=== PATIENT | male | born 1960 | race Caucasian/White ===

== ENCOUNTER 2017-06-10 11:54 | Inpatient (IN) ==
[2017-06-10] MEDS ORDERED: THIAMINE INJ 100 MG, FOLIC ACID INJ 1 MG, MAGNESIUM SULF INJ 2 GM, MULTIVITAMIN INJ 10 ... IV ONE (12:07)
[2017-06-10] MEDS ORDERED: ONDANSETRON 4 MG/2 ML VIAL IV STA (12:31)
[2017-06-10] MEDS ORDERED: ONDANSETRON 4 MG/2 ML VIAL ONE ×2 (12:39→13:00)
[2017-06-10 12:56] LABS: Basophils % 0.2 % (0.0-0.8); Eosinophils % 0.1 % (0.00-10.9); Hematocrit 49.2 VOL% (42.0-52.0); Hemoglobin 16.5 GM/DL (14.0-18.0); Immature Granulocytes % 0.5 %; Immature Granulocytes Absolute 0.08 #; Lymphocytes # 1.2 10*3/uL (1.4-4.0); Lymphocytes % 7.4 % (21.2-54.2); Mean Corpuscular HGB Conc 33.5 GM/DL (32-36); Mean Corpuscular Hemoglobin 30 PG (27-34); Mean Corpuscular Volume 89.9 FL (87-102); Mean Platelet Volume 10.5 FL (9.6-12.0); Monocytes # 0.6 10*3/uL (0.11-0.8); Monocytes % 3.8 % (1.7-12.7); Neutrophils # 14.4 10*3/uL (1.4-7.4); Platelet Count 327 T/CUMM (130-400); Red Blood Count 5.47 MC/CUMM (3.8-5.5); Red Cell Distribution Width 13.4 % (9.3-17.3); White Blood Count 16.4 T/CUMM (4-12)
[2017-06-10 12:59] LABS: Apearance,Urine Slightly Hazy (Clear); Bilirubin,Urine Negative (Negative); Blood, Urine Negative (Negative); Glucose,Urine (UA) Negative (Negative); Ketones,Urine Negative (Negative); Mucus,Urine Many /LPF (Occasional); Nitrite,Urine Negative (Negative); Protein,Urine 30 MG/DL; RBC,Urine 2 /HPF (0-4); Urine Color Amber (Yellow); Urine Specific Gravity 1.029 (1.001-1.035); Urine Urobilinogen < 2.0 EU/DL (0.2-1.0); WBC,Urine 6 /HPF (0-6)
[2017-06-10 13:05] LABS: Barbiturates Screen,Urine Negative (Negative); Benzodiazepines Screen,Urine Positive (Negative); Cannabinoid Screen,Urine Negative (Negative); Opiate Screen,Urine Negative (Negative); Phencyclidine Screen,Urine Negative (Negative)
[2017-06-10 13:11] LABS: INR 1.1; PT Patient Result 11.2 SECS; Partial Thromboplastin Time 23.6 SECS (0-40)
[2017-06-10 13:26] LABS: Alanine Aminotransferase 33 U/L (16-61); Albumin 4.3 G/DL (3.4-5.0); Alkaline Phosphatase 109 U/L (45-117); Aspartate Amino Transferase 24 U/L (0-37); Blood Urea Nitrogen 16 MG/DL (7-18); Glucose 113 MG/DL (74-106); Potassium 4.6 MMOL/L (3.5-5.1); Sodium 136 MMOL/L (136-145); Total Protein 7.9 G/DL (6.4-8.3)
[2017-06-10 13:28] LABS: Lactic Acid 4.2 MMOL/L (0.4-2.0)
[2017-06-10] MEDS ORDERED: SODIUM CHLORIDE 0.9% 1,000 ML IV STA (13:54)
[2017-06-10 15:28] LABS: ABG Base Excess -2.6 MMOL/L (-2.5-2.5); ABG HCO3 21.4 MMOL/L (20-26); ABG Oxygen Saturation 97.1 % (95-100); ABG PCO2 35.1 MM HG (35-48); ABG PH 7.403 (7.35-7.45); ABG PO2 95.4 MM HG (80-95); ABG TCO2 22.5 MMOL/L (23-27); Allen Test Positive; Pt O2 Delivery Device Room Air
[2017-06-10] MEDS: ONDANSETRON 4 MG/2 ML VIAL IV PRN ×2 (15:54→20:00)
[2017-06-10] MEDS: METOPROLOL TARTRATE 100 MG TABLET PO SCH (17:26)
[2017-06-10] MEDS: GABAPENTIN 300 MG CAPSULE PO SCH ×2 (17:27→22:21)
[2017-06-10] MEDS: PIPERACILLIN/TAZOBACTAM 3,375 MG in SODIUM CHLORIDE 0.9% 100 ML IV SCH (17:28)
[2017-06-10] MEDS: ENOXAPARIN 40 MG/0.4 ML SYRINGE SUBCUT SCH (17:29)
[2017-06-10] MEDS: SODIUM CHLORIDE 0.45% 1,000 ML IV SCH (19:55)
[2017-06-10] MEDS: ZALEPLON 5 MG CAPSULE PO PRN (22:21)
[2017-06-10] MEDS: ATORVASTATIN 80 MG TABLET PO SCH (22:21)
[2017-06-11] MEDS: PIPERACILLIN/TAZOBACTAM 3,375 MG in SODIUM CHLORIDE 0.9% 100 ML IV SCH ×4 (00:31→22:52)
[2017-06-11] MEDS: ACETAMINOPHEN 325 MG TABLET PO PRN ×2 (00:32→22:52)
[2017-06-11] MEDS: ONDANSETRON 4 MG/2 ML VIAL IV PRN ×3 (00:32→15:07)
[2017-06-11] MEDS: SODIUM CHLORIDE 0.45% 1,000 ML IV SCH ×4 (03:50→21:10)
[2017-06-11 04:45] LABS: Basophils # 0.1 10*3/uL (0.0-0.2); Basophils % 0.4 % (0.0-0.8); Eosinophils % 0.1 % (0.00-10.9); Hematocrit 42.5 VOL% (42.0-52.0); Hemoglobin 14.6 GM/DL (14.0-18.0); Immature Granulocytes % 0.4 %; Immature Granulocytes Absolute 0.06 #; Lymphocytes # 1.9 10*3/uL (1.4-4.0); Lymphocytes % 13.4 % (21.2-54.2); Mean Corpuscular HGB Conc 34.4 GM/DL (32-36); Mean Corpuscular Hemoglobin 31 PG (27-34); Mean Corpuscular Volume 89.7 FL (87-102); Mean Platelet Volume 11.2 FL (9.6-12.0); Monocytes # 1.2 10*3/uL (0.11-0.8); Monocytes % 8.5 % (1.7-12.7); Neutrophils # 10.7 10*3/uL (1.4-7.4); Neutrophils % 77.2 % (38.7-73.9); Platelet Count 277 T/CUMM (130-400); Red Blood Count 4.74 MC/CUMM (3.8-5.5); Red Cell Distribution Width 13.6 % (9.3-17.3); White Blood Count 13.9 T/CUMM (4-12)
[2017-06-11 05:13] LABS: Calcium 8.1 MG/DL (8.5-10.1); Magnesium 2.1 MG/DL (1.8-2.4); Osmolality,Calculated 274.8 MOS/KG (273-304)
[2017-06-11] MEDS: GABAPENTIN 300 MG CAPSULE PO SCH ×3 (09:19→21:06)
[2017-06-11] MEDS: METOPROLOL TARTRATE 100 MG TABLET PO SCH ×2 (09:20→17:40)
[2017-06-11] MEDS: PANTOPRAZOLE 40 MG TABLET PO SCH (09:20)
[2017-06-11] MEDS: ENOXAPARIN 40 MG/0.4 ML SYRINGE SUBCUT SCH (15:10)
[2017-06-11] MEDS: ZALEPLON 5 MG CAPSULE PO PRN ×2 (21:08→22:52)
[2017-06-11] MEDS: ATORVASTATIN 80 MG TABLET PO SCH (21:08)
[2017-06-12] MEDS: ONDANSETRON 4 MG/2 ML VIAL IV PRN (02:21)
[2017-06-12 06:46] LABS: Basophils # 0.1 10*3/uL (0.0-0.2); Basophils % 0.7 % (0.0-0.8); Eosinophils # 0.1 10*3/uL (0.0-0.87); Eosinophils % 1.1 % (0.00-10.9); Hematocrit 43.7 VOL% (42.0-52.0); Hemoglobin 14.6 GM/DL (14.0-18.0); Immature Granulocytes % 0.4 %; Immature Granulocytes Absolute 0.03 #; Lymphocytes # 2.1 10*3/uL (1.4-4.0); Mean Corpuscular HGB Conc 33.4 GM/DL (32-36); Mean Corpuscular Hemoglobin 30 PG (27-34); Mean Corpuscular Volume 90.9 FL (87-102); Mean Platelet Volume 11.3 FL (9.6-12.0); Monocytes # 0.7 10*3/uL (0.11-0.8); Monocytes % 9.9 % (1.7-12.7); Neutrophils # 4.3 10*3/uL (1.4-7.4); Neutrophils % 58.9 % (38.7-73.9); Platelet Count 248 T/CUMM (130-400); Red Blood Count 4.81 MC/CUMM (3.8-5.5); Red Cell Distribution Width 13.5 % (9.3-17.3); White Blood Count 7.4 T/CUMM (4-12)
[2017-06-12] MEDS: SODIUM CHLORIDE 0.45% 1,000 ML IV SCH ×3 (06:49→15:38)
[2017-06-12] MEDS: PIPERACILLIN/TAZOBACTAM 3,375 MG in SODIUM CHLORIDE 0.9% 100 ML IV SCH ×2 (06:55→16:06)
[2017-06-12 07:10] LABS: Calcium 8.3 MG/DL (8.5-10.1); Magnesium 1.9 MG/DL (1.8-2.4); Osmolality,Calculated 276.5 MOS/KG (273-304); Potassium 4.3 MMOL/L (3.5-5.1)
[2017-06-12] MEDS: METOPROLOL TARTRATE 100 MG TABLET PO SCH ×2 (07:58→17:38)
[2017-06-12] MEDS: GABAPENTIN 300 MG CAPSULE PO SCH ×2 (08:29→16:06)
[2017-06-12] MEDS: PANTOPRAZOLE 40 MG TABLET PO SCH (08:29)
[2017-06-12] MEDS: ENOXAPARIN 40 MG/0.4 ML SYRINGE SUBCUT SCH (16:05)
[2017-06-12 16:52] VITALS: BP 137/75
== END 2017-06-12 17:30 | disposition home or self-care (01) | DRG 812 ==
LOC: EDBD → EDUNIT# → N.ED 11:54 → N.EDINP 13:43 → N.ICU 15:01 → N.5E 06-11 12:19
PROVIDERS: ADMIT Internal Medicine; ATTEND Internal Medicine

== ENCOUNTER 2021-10-02 21:06 | Inpatient (IN) ==
[2021-10-02] MEDS ORDERED: THIAMINE INJ 100 MG, FOLIC ACID INJ 1 MG, MAGNESIUM SULF INJ 2 GM, MULTIVITAMIN INJ 10 ... IV ONE (21:28)
[2021-10-02 22:14] LABS: Basophils % 0.3 % (0.0-0.8); Hematocrit 45.7 VOL% (42.0-52.0); Hemoglobin 15.8 GM/DL (14.0-18.0); Immature Granulocytes % 0.8 %; Immature Granulocytes Absolute 0.09 #; Lymphocytes # 1.2 10*3/uL (1.4-4.0); Lymphocytes % 11.4 % (21.2-54.2); Mean Corpuscular HGB Conc 34.6 GM/DL (32-36); Mean Platelet Volume 8.8 FL (9.6-12.0); Monocytes # 0.4 10*3/uL (0.11-0.8); Monocytes % 4.1 % (1.7-12.7); Neutrophils % 83.4 % (38.7-73.9); Platelet Count 292 T/CUMM (130-400); Red Blood Count 4.57 MC/CUMM (3.8-5.5); Red Cell Distribution Width 17.2 % (9.3-17.3); White Blood Count 10.7 T/CUMM (4-12)
[2021-10-02 22:26] LABS: Bacteria,Urine Occasional /HPF (Few); Mucus,Urine Few /LPF (Occasional); RBC,Urine 9 /HPF (0-4)
[2021-10-02 22:28] LABS: Bilirubin,Urine Negative (Negative); Blood, Urine Small mg/dL (Negative); Glucose,Urine (UA) Negative (Negative); Ketones,Urine Negative (Negative); Nitrite,Urine Negative (Negative); Protein,Urine 100 mg/dL (Negative); Urine Appearance Clear (Clear); Urine Color Dark Yellow (Yellow); Urine Specific Gravity > 1.030 (1.001-1.035); Urine Urobilinogen 0.2 eU/dL (<2.0); Urine pH 5.5 (4.5-8.0)
[2021-10-02 22:35] LABS: Alanine Aminotransferase 24 U/L (16-61); Albumin 3.3 G/DL (3.4-5.0); Alkaline Phosphatase 105 U/L (45-117); Aspartate Amino Transferase 22 U/L (0-37); Blood Urea Nitrogen 8 MG/DL (7-18); Calcium 8.2 MG/DL (8.5-10.1); Carbon Dioxide 27 MMOL/L (21-32); Chloride 108 MMOL/L (98-107); Estimated Glom Filtration Rate 48 ML/MIN; Glucose 145 MG/DL (74-106); Osmolality,Calculated 286.8 MOS/KG (273-304); Potassium 3.4 MMOL/L (3.5-5.1); Sodium 144 MMOL/L (136-145); Total Protein 6.9 G/DL (6.4-8.2)
[2021-10-02 22:40] LABS: Barbiturates Screen,Urine Negative (Negative); Benzodiazepines Screen,Urine Positive (Negative); Cannabinoid Screen,Urine Negative (Negative); Opiate Screen,Urine Negative (Negative); Phencyclidine Screen,Urine Negative (Negative)
[2021-10-02] MEDS ORDERED: guaiFENesin/DM ER 600-30 MG TABLET PO PRN (22:55)
[2021-10-02] MEDS ORDERED: DEXTROSE 10% 250 ML BAG IV PRN (22:55)
[2021-10-02] MEDS ORDERED: ALBUTEROL/IPRATROPIUM 3 ML NEB RESP TX PRN (22:55)
[2021-10-02] MEDS ORDERED: NICOTINE 21 MG/24 HR PATCH TRANSDERM PRN (22:55)
[2021-10-02] MEDS ORDERED: hydrALAZINE 20 MG/1 ML VIAL IV PRN (22:55)
[2021-10-02] MEDS ORDERED: GLUCAGON 1 MG VIAL IM PRN (22:55)
[2021-10-02] MEDS ORDERED: THIAMINE 200 MG/2 ML VIAL IV STA (23:03)
[2021-10-02] MEDS ORDERED: MAGNESIUM SULF RIDER 2 GM/50 ML PREMIX IV STA (23:04)
[2021-10-03 00:08] LABS: ABG Base Excess 4.3 MMOL/L (-2.5-2.5); ABG HCO3 28.2 MMOL/L (20-26); ABG Oxygen Saturation 96.5 % (95-100); ABG PCO2 28.5 MM HG (35-48); ABG PO2 74.6 MM HG (80-95); ABG TCO2 21.6 MMOL/L (23-27)
[2021-10-03] MEDS: diphenhydrAMINE CAP 25 MG CAPSULE PO PRN (01:21)
[2021-10-03] MEDS: ONDANSETRON 4 MG/2 ML VIAL IV PRN ×3 (01:21→20:05)
[2021-10-03 05:36] LABS: Basophils % 0.2 % (0.0-0.8); Hematocrit 42.2 VOL% (42.0-52.0); Hemoglobin 14.6 GM/DL (14.0-18.0); Immature Granulocytes % 0.6 %; Immature Granulocytes Absolute 0.07 #; Lymphocytes # 1.4 10*3/uL (1.4-4.0); Lymphocytes % 10.9 % (21.2-54.2); Mean Corpuscular HGB Conc 34.6 GM/DL (32-36); Mean Corpuscular Volume 99.5 FL (87-102); Mean Platelet Volume 8.9 FL (9.6-12.0); Monocytes # 0.7 10*3/uL (0.11-0.8); Monocytes % 5.3 % (1.7-12.7); Platelet Count 274 T/CUMM (130-400); Red Blood Count 4.24 MC/CUMM (3.8-5.5); Red Cell Distribution Width 17.3 % (9.3-17.3); White Blood Count 12.4 T/CUMM (4-12)
[2021-10-03] MEDS: DEXT 5% NACL 0.9% KCL 40 MEQ 40 MEQ/1,000 ML BAG IV SCH ×4 (05:44→23:54)
[2021-10-03 06:10] LABS: Bilirubin,Total 0.8 MG/DL (0.20-1.00); Potassium 2.7 MMOL/L (3.5-5.1); Thyroid Stimulating Hormone 1.3 uIU/ml (0.358-3.74); Total Protein 6.6 G/DL (6.4-8.2)
[2021-10-03] MEDS: POTASSIUM CHLORIDE RIDER 10 MEQ/100 ML PREMIX IV PRN ×5 (06:28→10:50)
[2021-10-03] MEDS: HEPARIN 5,000 UNIT/1 ML VIAL SUBCUT SCH ×2 (08:31→20:05)
[2021-10-03] MEDS: PANTOPRAZOLE 40 MG TABLET PO SCH (08:31)
[2021-10-03] MEDS: cefTRIAXone 1,000 MG in SODIUM CHLORIDE 0.9% 100 ML IV SCH (11:55)
[2021-10-03] MEDS: ACETAMINOPHEN 325 MG TABLET PO PRN ×2 (13:23→20:05)
[2021-10-03 15:04] LABS: Calcium 7.5 MG/DL (8.5-10.1); Osmolality,Calculated 277.4 MOS/KG (273-304); Potassium 3.5 MMOL/L (3.5-5.1)
[2021-10-03] MEDS: KETOROLAC 15 MG/1 ML VIAL IV PRN ×2 (17:58→23:55)
[2021-10-03] MEDS ORDERED: THIAMINE INJ 100 MG, FOLIC ACID INJ 1 MG, MAGNESIUM SULF INJ 2 GM, MULTIVITAMIN INJ 10 ... IV ONE (21:00)
[2021-10-04 05:53] LABS: Basophils % 0.4 % (0.0-0.8); Eosinophils % 0.4 % (0.00-10.9); Hematocrit 40.6 VOL% (42.0-52.0); Hemoglobin 13.1 GM/DL (14.0-18.0); Immature Granulocytes % 0.6 %; Immature Granulocytes Absolute 0.04 #; Lymphocytes # 1.5 10*3/uL (1.4-4.0); Lymphocytes % 20.5 % (21.2-54.2); Mean Corpuscular HGB Conc 32.3 GM/DL (32-36); Mean Corpuscular Volume 103.8 FL (87-102); Mean Platelet Volume 9.2 FL (9.6-12.0); Monocytes # 0.5 10*3/uL (0.11-0.8); Monocytes % 7.3 % (1.7-12.7); Neutrophils % 70.8 % (38.7-73.9); Platelet Count 220 T/CUMM (130-400); Red Blood Count 3.91 MC/CUMM (3.8-5.5); Red Cell Distribution Width 18.2 % (9.3-17.3); White Blood Count 7.3 T/CUMM (4-12)
[2021-10-04 06:12] LABS: Albumin 2.6 G/DL (3.4-5.0); Bilirubin,Total 0.6 MG/DL (0.20-1.00); Calcium 7.4 MG/DL (8.5-10.1); Potassium 3.6 MMOL/L (3.5-5.1); Total Protein 5.9 G/DL (6.4-8.2)
[2021-10-04] MEDS: KETOROLAC 15 MG/1 ML VIAL IV PRN ×2 (07:11→21:22)
[2021-10-04] MEDS: ONDANSETRON 4 MG/2 ML VIAL IV PRN (07:51)
[2021-10-04] MEDS: HEPARIN 5,000 UNIT/1 ML VIAL SUBCUT SCH ×2 (08:00→21:22)
[2021-10-04] MEDS: PANTOPRAZOLE 40 MG TABLET PO SCH (08:00)
[2021-10-04] MEDS: DEXT 5% NACL 0.9% KCL 40 MEQ 40 MEQ/1,000 ML BAG IV SCH (10:38)
[2021-10-04] MEDS: LORazepam 2 MG/1 ML VIAL IV PRN ×3 (11:04→21:43)
[2021-10-04] MEDS ORDERED: ALUMINUM/MAGNES/SIMETH MAX STR 30 ML UDCUP PO PRN (11:41)
[2021-10-04] MEDS: cefTRIAXone 1,000 MG in SODIUM CHLORIDE 0.9% 100 ML IV SCH (14:40)
[2021-10-05] MEDS: LORazepam 2 MG/1 ML VIAL IV PRN ×2 (02:50→22:29)
[2021-10-05] MEDS: KETOROLAC 15 MG/1 ML VIAL IV PRN ×2 (02:50→22:30)
[2021-10-05] MEDS: DEXT 5% NACL 0.9% KCL 40 MEQ 40 MEQ/1,000 ML BAG IV SCH (05:35)
[2021-10-05 05:39] LABS: Calcium 7.9 MG/DL (8.5-10.1); Osmolality,Calculated 276.4 MOS/KG (273-304); Potassium 3.5 MMOL/L (3.5-5.1)
[2021-10-05] MEDS: HEPARIN 5,000 UNIT/1 ML VIAL SUBCUT SCH ×2 (09:42→22:27)
[2021-10-05] MEDS: PANTOPRAZOLE 40 MG TABLET PO SCH (09:42)
[2021-10-05] MEDS ORDERED: LORazepam 2 MG/1 ML VIAL IM PRN (10:50)
[2021-10-05] MEDS: cefTRIAXone 1,000 MG in SODIUM CHLORIDE 0.9% 100 ML IV SCH (12:03)
[2021-10-06] MEDS: diphenhydrAMINE CAP 25 MG CAPSULE PO PRN (03:02)
[2021-10-06 05:41] LABS: Basophils % 0.6 % (0.0-0.8); Eosinophils # 0.3 10*3/uL (0.0-0.87); Eosinophils % 4.4 % (0.00-10.9); Hematocrit 40.7 VOL% (42.0-52.0); Hemoglobin 13.5 GM/DL (14.0-18.0); Immature Granulocytes % 0.9 %; Immature Granulocytes Absolute 0.06 #; Lymphocytes # 1.4 10*3/uL (1.4-4.0); Lymphocytes % 21.9 % (21.2-54.2); Mean Corpuscular HGB Conc 33.2 GM/DL (32-36); Mean Corpuscular Volume 104.1 FL (87-102); Mean Platelet Volume 9.5 FL (9.6-12.0); Monocytes # 0.6 10*3/uL (0.11-0.8); Monocytes % 8.8 % (1.7-12.7); Neutrophils % 63.4 % (38.7-73.9); Platelet Count 219 T/CUMM (130-400); Red Blood Count 3.91 MC/CUMM (3.8-5.5); Red Cell Distribution Width 17.2 % (9.3-17.3); White Blood Count 6.3 T/CUMM (4-12)
[2021-10-06 05:59] LABS: Calcium 8.2 MG/DL (8.5-10.1); Osmolality,Calculated 279.1 MOS/KG (273-304); Potassium 3.5 MMOL/L (3.5-5.1)
[2021-10-06] MEDS: HEPARIN 5,000 UNIT/1 ML VIAL SUBCUT SCH ×2 (09:50→21:15)
[2021-10-06] MEDS: PANTOPRAZOLE 40 MG TABLET PO SCH (09:50)
[2021-10-06] MEDS: LORazepam 2 MG/1 ML VIAL IV PRN ×3 (11:57→23:29)
[2021-10-06] MEDS: cefTRIAXone 1,000 MG in SODIUM CHLORIDE 0.9% 100 ML IV SCH ×2 (11:58→18:12)
[2021-10-06] MEDS: KETOROLAC 15 MG/1 ML VIAL IV PRN (23:28)
[2021-10-07] MEDS: PANTOPRAZOLE 40 MG TABLET PO SCH (09:45)
[2021-10-07] MEDS: HEPARIN 5,000 UNIT/1 ML VIAL SUBCUT SCH ×2 (09:46→21:36)
[2021-10-07] MEDS: cephALEXin 500 MG CAPSULE PO SCH ×2 (09:46→21:13)
[2021-10-07] MEDS: LORazepam 2 MG/1 ML VIAL IV PRN ×2 (09:47→21:13)
[2021-10-08] MEDS: cephALEXin 500 MG CAPSULE PO SCH ×2 (09:44→20:34)
[2021-10-08] MEDS: PANTOPRAZOLE 40 MG TABLET PO SCH (09:44)
[2021-10-08] MEDS: HEPARIN 5,000 UNIT/1 ML VIAL SUBCUT SCH ×2 (09:45→20:35)
[2021-10-08] MEDS: ACETAMINOPHEN 325 MG TABLET PO PRN (11:35)
[2021-10-09] MEDS: PANTOPRAZOLE 40 MG TABLET PO SCH (10:14)
[2021-10-09] MEDS: cephALEXin 500 MG CAPSULE PO SCH ×2 (10:14→20:47)
[2021-10-09] MEDS: HEPARIN 5,000 UNIT/1 ML VIAL SUBCUT SCH ×2 (10:23→20:48)
[2021-10-09] MEDS: ACETAMINOPHEN 325 MG TABLET PO PRN (16:49)
[2021-10-10] MEDS: cephALEXin 500 MG CAPSULE PO SCH ×2 (08:37→20:37)
[2021-10-10] MEDS: PANTOPRAZOLE 40 MG TABLET PO SCH (08:37)
[2021-10-10] MEDS: HEPARIN 5,000 UNIT/1 ML VIAL SUBCUT SCH ×2 (08:39→20:37)
[2021-10-11] MEDS: cephALEXin 500 MG CAPSULE PO SCH ×2 (10:37→20:45)
[2021-10-11] MEDS: HEPARIN 5,000 UNIT/1 ML VIAL SUBCUT SCH ×2 (10:37→20:45)
[2021-10-11] MEDS: PANTOPRAZOLE 40 MG TABLET PO SCH (10:37)
[2021-10-12] MEDS: PANTOPRAZOLE 40 MG TABLET PO SCH (09:53)
[2021-10-12] MEDS: cephALEXin 500 MG CAPSULE PO SCH ×2 (09:53→21:08)
[2021-10-12] MEDS: HEPARIN 5,000 UNIT/1 ML VIAL SUBCUT SCH ×2 (09:55→21:07)
[2021-10-13] MEDS: PANTOPRAZOLE 40 MG TABLET PO SCH (09:59)
[2021-10-13] MEDS: cephALEXin 500 MG CAPSULE PO SCH ×2 (09:59→20:50)
[2021-10-13] MEDS: HEPARIN 5,000 UNIT/1 ML VIAL SUBCUT SCH ×2 (10:00→21:27)
[2021-10-14] MEDS: cephALEXin 500 MG CAPSULE PO SCH (09:49)
[2021-10-14] MEDS: PANTOPRAZOLE 40 MG TABLET PO SCH (09:49)
[2021-10-14] MEDS: HEPARIN 5,000 UNIT/1 ML VIAL SUBCUT SCH ×2 (09:49→20:21)
[2021-10-15 04:53] LABS: Basophils # 0.1 10*3/uL (0.0-0.2); Basophils % 0.9 % (0.0-0.8); Eosinophils # 0.1 10*3/uL (0.0-0.87); Eosinophils % 1.7 % (0.00-10.9); Hematocrit 41.7 VOL% (42.0-52.0); Hemoglobin 13.8 GM/DL (14.0-18.0); Immature Granulocytes % 0.4 %; Immature Granulocytes Absolute 0.02 #; Lymphocytes # 1.6 10*3/uL (1.4-4.0); Lymphocytes % 29.7 % (21.2-54.2); Mean Corpuscular HGB Conc 33.1 GM/DL (32-36); Mean Corpuscular Volume 102.5 FL (87-102); Mean Platelet Volume 10.9 FL (9.6-12.0); Monocytes # 0.5 10*3/uL (0.11-0.8); Monocytes % 9.8 % (1.7-12.7); Neutrophils % 57.5 % (38.7-73.9); Platelet Count 210 T/CUMM (130-400); Red Blood Count 4.07 MC/CUMM (3.8-5.5); Red Cell Distribution Width 15.1 % (9.3-17.3); White Blood Count 5.3 T/CUMM (4-12)
[2021-10-15 05:24] LABS: Calcium 9.4 MG/DL (8.5-10.1); Osmolality,Calculated 273.7 MOS/KG (273-304); Potassium 3.2 MMOL/L (3.5-5.1)
[2021-10-15] MEDS: HEPARIN 5,000 UNIT/1 ML VIAL SUBCUT SCH ×2 (09:00→21:52)
[2021-10-15] MEDS: PANTOPRAZOLE 40 MG TABLET PO SCH (11:15)
[2021-10-16] MEDS: HEPARIN 5,000 UNIT/1 ML VIAL SUBCUT SCH (09:15)
[2021-10-16] MEDS: PANTOPRAZOLE 40 MG TABLET PO SCH (09:15)
[2021-10-16 15:46] VITALS: BP 140/85
== END 2021-10-16 18:07 | DRG 817 ==
LOC: EDUNIT# → N.ED 21:06 → N.EDINP 22:55 → INTOOBSV 22:55 → N.CC 10-03 01:53 → N.TELEN 10-03 21:54 → SUATTDRO 10-05 13:53
PROVIDERS: ADMIT Internal Medicine; ATTEND Internal Medicine Geriatric Medicine